=== PATIENT | female | born 1990 | race Caucasian/White ===

== ENCOUNTER 2017-05-24 22:37 | Emergency (ER) | payer MEDICAID, OTHER ==
[~2017-05-24] VITALS: Ht 170.2 cm; Wt 78.0 kg
[~2017-05-24 22:37] MED LIST: FERR325C PO; IBUP-779 PO; MULT-1146 PO
[2017-05-25] MEDS ORDERED: ACETAMINOPHEN 325MG TABLET PO ONE (00:15)
[2017-05-25 02:40] VITALS: BP 122/67
== END 2017-05-25 02:40 | disposition home or self-care (01) ==
LOC: ER 22:50
DX: S02.2XXA Fracture of nasal bones, initial encounter for closed fracture (principal); H74.8X2 Other specified disorders of left middle ear and mastoid; M54.2 Cervicalgia; F41.9 Anxiety disorder, unspecified; F17.200 Nicotine dependence, unspecified, uncomplicated; F12.10 Cannabis abuse, uncomplicated; Y04.0XXA Assault by unarmed brawl or fight, initial encounter; Y93.89 Activity, other specified; Y92.89 Other specified places as the place of occurrence of the external cause; Y99.8 Other external cause status
CPT/HCPCS: 70450; 70486; 72125; 81025; 99284